=== PATIENT | female | born 1960 | race Caucasian/White ===

== ENCOUNTER 2021-08-29 17:16 | Emergency (ER) | payer OTHER ==
[2021-08-29] MEDS ORDERED: FLEXERIL5 MG PO (20:13)
== END 2021-08-29 20:15 | disposition home or self-care (01) ==
LOC: FER 17:16
DX: S16.1XXA Strain of muscle, fascia and tendon at neck level, initial encounter (principal); S39.012A Strain of muscle, fascia and tendon of lower back, initial encounter; V43.52XA Car driver injured in collision with other type car in traffic accident, initial encounter
CPT/HCPCS: 72040; 72072; 72100